=== PATIENT | male | born 1975 | race Caucasian/White ===

== ENCOUNTER 2016-06-08 12:10 | Emergency (ER) | payer SELFPAY ==
[~2016-06-08] VITALS: Ht 165.1 cm; Wt 71.3 kg
[~2016-06-08 12:10] MED LIST: CARI350T14 PO; CYCL10TA2 PO; DIAZ2TAB PO; HYDR-971 PO; NAPR500T8 PO; PARO40TA45 PO; PENI500T PO; TRAM50TA PO
[2016-06-08 12:43] VITALS: BP 125/75
--- NOTE | 2016-06-08 13:07 | PHYS DOC ---
Past Medical History Past Medical History: Anxiety, Depression, Other Additional Past Medical Histor: CHRONIC BACK PAIN Past Surgical History: No Surgical History Alcohol Use: Rarely Drug Use: None Adult General Chief Complaint Chief Complaint: Neck Pain HPI HPI Patient is a 40 year old male presents emergency department stating that he woke up and was having right neck pain. He states that he has decreased range of motion of his neck as well as some numbness and tingling into his second and third finger on his right hand. Patient states that his been taken Flexeril at night to help with the discomfort as well as tramadol without relief. He has been taken ibuprofen 800 mg twice a day without relief. Review of Systems Review of Systems Constitutional: Denies fever or chills [] Eyes: Denies change in visual acuity, redness, or eye pain [] HENT: Denies nasal congestion or sore throat [] Respiratory: Denies cough or shortness of breath [] Cardiovascular: No additional information not addressed in HPI [] GI: Denies abdominal pain, nausea, vomiting, bloody stools or diarrhea [] : Denies dysuria or hematuria [] Musculoskeletal: c/o right upper back/neck pain Integument: Denies rash or skin lesions [] Neurologic: Denies headache, focal weakness or sensory changes [] Allergies Allergies Allergies Coded Allergies Type Severity Reaction Last Updated Verified blueberry Allergy Intermediate 01/29/16 Yes Physical Exam Physical Exam Constitutional: Well developed, well nourished, no acute distress, non-toxic appearance. [] HENT: Normocephalic, atraumatic, bilateral external ears normal, oropharynx moist, no oral exudates, nose normal. [] Eyes: PERRLA, EOMI, conjunctiva normal, no discharge. [] Neck: Normal range of motion, no tenderness, supple, no stridor. [] Cardiovascular:Heart rate regular rhythm, no murmur [] Lungs & Thorax: Bilateral breath sounds clear to auscultation [] Skin: Warm, dry, no erythema, no rash. [] Back: No tenderness Extremities: right neck tenderness, no cyanosis, no clubbing, ROM intact, no edema. She with decreased range of motion with the head. Tenderness noted on the right upper back area. Peripheral pulses 2+ cap refill brisk less than 2 seconds. 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 Neurologic: Alert and oriented X 3, normal motor function, normal sensory function, no focal deficits noted. [] Psychologic: Affect normal, judgement normal, mood normal. [] Current Patient Data Vital Signs Vital Signs Date Time Temp Pulse Resp B/P Pulse Ox O2 Delivery O2 Flow Rate FiO2 06/08/16 12:43 98.2 79 16 99 Room Air 98.2 EKG EKG [] Radiology/Procedures Radiology/Procedures [] Course & Med Decision Making Course & Med Decision Making Pertinent Labs and Imaging studies reviewed. (See chart for details) Patient will be provided with a work note until Wednesday in which she can follow-up with his primary care physician. Patient has Flexeril and tramadol at home in which she can take for the pain and discomfort. Also recommended ibuprofen 800 mg every 8 hours ice packs to the area. Tendons and symptoms to return back to emergency department as been provided. Patient agrees with discharge instructions treatment regimens and follow-up recommendations. Dragon Disclaimer Dragon Disclaimer This electronic medical record was generated, in whole or in part, using a voice recognition dictation system. Departure Departure Impression: Primary Impression: Torticollis, acute Disposition: , SELF-CARE Condition: STABLE Referrals: NON,STAFF (PCP) Patient Instructions: Torticollis, Acute Additional Instructions: Activity as tolerated. Medications as prescribed. Continue the ibuprofen 800 mg every 8 hours with food. Stop taking few develop an upset stomach. Flexeril and tramadol may cause drowsiness do not take any be alert and oriented. Ice packs on 20 minutes off 20 minutes several times a day. Follow-up to primary care physician on Wednesday in which she state you have an appointment. Return back to emergency department sign symptoms of become worse. YOAV BURRELL NP Jun 08, 2016 13:07
== END 2016-06-08 13:13 | disposition home or self-care (01) ==
LOC: ER 12:10
DX: M43.6 Torticollis (principal); G89.29 Other chronic pain; F32.9 Major depressive disorder, single episode, unspecified; F41.9 Anxiety disorder, unspecified; Z91.018 Allergy to other foods
CPT/HCPCS: 99281

== ENCOUNTER 2016-07-03 13:27 | Emergency (ER) | payer SELFPAY ==
[~2016-07-03] VITALS: Ht 165.1 cm; Wt 63.5 kg
[2016-07-03 13:32] VITALS: BP 159/72
--- NOTE | 2016-07-03 14:43 | PHYS DOC ---
Past Medical History Past Medical History: Anxiety, Depression, Kidney Stone, Other Additional Past Medical Histor: CHRONIC BACK PAIN,TORTICOLLIS Past Surgical History: No Surgical History Additional Information: 1 PPD Alcohol Use: Rarely Drug Use: None Adult General Chief Complaint Chief Complaint: Neck Pain HPI HPI Patient is a 40 year old male who presents with right-sided neck pain for 1 month. He denies any injury to his neck. The pain radiates down the right arm. He also has pins and needles in the 1st, 2nd, and 3rd fingers of the right hand. He denies any weakness. He has been seen here and prescribed steroids, which helped minimally but only temporarily. He has been seen at the health department as well and prescribed Ultram and Flexeril. He states that these help minimally as well. 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 He does not have a PCP. Review of Systems Review of Systems Constitutional: Denies fever or chills. [] Respiratory: Denies cough or shortness of breath. [] Cardiovascular: Denies chest pain, palpitations or edema. [] Musculoskeletal: Denies back pain or joint pain. Reports right-sided neck pain. Integument: Denies rash or skin lesions. [] Neurologic: Denies headache, focal weakness. Report numbness and tingling in the finger of the right hand. Allergies Allergies Allergies Coded Allergies Type Severity Reaction Last Updated Verified blueberry Allergy Intermediate 01/29/16 Yes Physical Exam Physical Exam Constitutional: Well developed, well nourished, no acute distress, non-toxic appearance. [] HENT: Normocephalic, atraumatic, bilateral external ears normal, oropharynx moist, no oral exudates, nose normal. [] Eyes: PERRLA, EOMI, conjunctiva normal, no discharge. [] Neck: Normal range of motion, no midline tenderness, supple, no stridor. There is right-sided paraspinal muscle tenderness with muscle spasm. Skin: Warm, dry, no erythema, no rash. [] Back: No tenderness, no CVA tenderness. [] Extremities: No right arm tenderness, no cyanosis, no clubbing, ROM intact, no edema. 2+ radial and ulnar pulses. 2 second capillary refill in the fingers. There is mildly decreased light touch sensation in the 1st, 2nd, and 3rd fingers of the right hand. Neurologic: Alert and oriented X 3, normal motor function, normal sensory function, no focal deficits noted. [] Psychologic: Affect normal, judgement normal, mood normal. [] Current Patient Data Vital Signs Vital Signs Date Time Temp Pulse Resp B/P Pulse Ox O2 Delivery O2 Flow Rate FiO2 07/03/16 13:32 98.2 109 18 159/72 99 Room Air 98.2 EKG EKG [] Radiology/Procedures Radiology/Procedures [] Course & Med Decision Making Course & Med Decision Making Pertinent Labs and Imaging studies reviewed. (See chart for details) [] Dragon Disclaimer Dragon Disclaimer This electronic medical record was generated, in whole or in part, using a voice recognition dictation system. Departure Departure Impression: Primary Impression: Torticollis, acute Disposition: 01 HOME, SELF-CARE Condition: STABLE Referrals: NO PCP (PCP) Patient Instructions: Torticollis, Acute Additional Instructions: Please follow-up with a primary care doctor regarding your continued neck pain. Please take the prescribed pain medication as directed. Do not drive or operate heavy machinery while taking narcotic medications or muscle relaxers. Return to the emergency department if you have any new or concerning symptoms. Scripts Ibuprofen 600 Mg [id number] Mg PO PRN Q6HRS PRN INFLAMMATION #20 TAB Prov:ELIAS OLGUIN 07/03/16 Hydrocodone/Apap 5-325 ([place] 5-325 Tablet)1 Each Tablet1 Tab PO PRN Q6HRS PRN PAIN #20 TAB Prov:ELIAS OLGUIN 07/03/16 Methocarbamol (Robaxin)500 Mg [id number] Mg PO QID #20 TAB Prov:ELIAS OLGUIN 07/03/16 ELIAS OLGUIN Jul 03, 2016 14:43
[2016-07-03] MEDS ORDERED: METH-37 PO (14:54)
[2016-07-03] MEDS ORDERED: IBUP-1007 PO (14:54)
[2016-07-03] MEDS ORDERED: HYDR-971 PO (14:54)
== END 2016-07-03 14:59 | disposition home or self-care (01) ==
LOC: ER 13:27
DX: M43.6 Torticollis (principal); G89.29 Other chronic pain; Z91.018 Allergy to other foods
CPT/HCPCS: 99283

== ENCOUNTER 2016-08-01 16:23 | Emergency (ER) | payer SELFPAY ==
[~2016-08-01] VITALS: Ht 165.1 cm; Wt 63.5 kg
[~2016-08-01 16:23] MED LIST changes: +IBUP-1007 PO; +METH-37 PO
[2016-08-01 16:57] VITALS: BP 127/83
[2016-08-01] MEDS ORDERED: AMOX500T PO (17:05)
[2016-08-01] MEDS ORDERED: HYDR-971 PO (17:05)
--- NOTE | 2016-08-01 17:05 | PHYS DOC ---
Past Medical History Past Medical History: Anxiety, Depression, Kidney Stone, Other Additional Past Medical Histor: CHRONIC BACK PAIN,TORTICOLLIS Past Surgical History: No Surgical History Smoking: Less than 1pk/day Alcohol Use: Rarely Drug Use: None Adult General Chief Complaint Chief Complaint: TOOTH ACHE OR PAIN HPI HPI Patient is a 40 year old male who presents with left maxillary dental pain for 1 month. He has been seeing a dentist for the tooth and has an extraction scheduled on of next week. He is out of the pain medication that the dentist prescribed. He has completed all of the antibiotics prescribed by the dentist as well. He feels like it is starting to swell again and is worried there may be infection again that will prevent him from being able to have the tooth pulled as scheduled. He denies any fevers. His PCP is Dr. Burnett. Review of Systems Review of Systems Constitutional: Denies fever or chills. [] Eyes: Denies change in visual acuity, redness, or eye pain. [] HENT: Denies ear pain, nasal congestion or sore throat. Reports dental pain. Integument: Denies rash or skin lesions. [] Neurologic: Denies headache, focal weakness or sensory changes. [] Allergies Allergies Allergies Coded Allergies Type Severity Reaction Last Updated Verified blueberry Allergy Intermediate 01/29/16 Yes Physical Exam Physical Exam Constitutional: Well developed, well nourished, no acute distress, non-toxic appearance. [] HENT: Normocephalic, atraumatic, bilateral external ears normal, oropharynx moist, no oral exudates, nose normal. Bilateral TMs without erythema or bulging. There is no posterior pharyngeal erythema or tonsillar edema. Tooth # 14 is carious and tender without surrounding gingival edema or dental abscess. Eyes: PERRLA, EOMI, conjunctiva normal, no discharge. [] Neck: Normal range of motion, no tenderness, supple, no stridor. [] Skin: Warm, dry, no erythema, no rash. [] Neurologic: Alert and oriented X 3, normal motor function, normal sensory function, no focal deficits noted. [] Psychologic: Affect normal, judgement normal, mood normal. [] EKG EKG [] Radiology/Procedures Radiology/Procedures [] Course & Med Decision Making Course & Med Decision Making Pertinent Labs and Imaging studies reviewed. (See chart for details) [] Dragon Disclaimer Dragon Disclaimer This electronic medical record was generated, in whole or in part, using a voice recognition dictation system. Departure Departure Impression: Primary Impression: Dental caries Disposition: HOME, SELF-CARE Condition: STABLE Referrals: NO PCP (PCP) Patient Instructions: Dental Pain, [id number] Additional Instructions: Please complete all the prescribed antibiotics, even if your tooth is feeling better. Please take the prescribed pain medication as instructed. Do not drive or operate heavy machinery while taking pain medication. Please follow-up with your dentist as soon as possible. Return to emergency department if you have any new or concerning symptoms. Scripts Amoxicillin 500 Mg Tablet1 Tab PO TID #30 TAB Prov:ELIAS OLGUIN 08/01/16 Hydrocodone/Apap 5-325 ([place] 5-325 Tablet)1 Each Tablet1 Tab PO PRN Q6HRS PRN PAIN #15 TAB Prov:ELIAS OLGUIN 08/01/16 ELIAS OLGUIN Aug 01, 2016 17:05
== END 2016-08-01 17:15 | disposition home or self-care (01) ==
LOC: ER 16:23
DX: K02.9 Dental caries, unspecified (principal); F17.200 Nicotine dependence, unspecified, uncomplicated; G89.29 Other chronic pain; Z91.02 Food additives allergy status
CPT/HCPCS: 99283

== ENCOUNTER 2016-10-05 19:17 | Emergency (ER) | payer SELFPAY ==
[~2016-10-05] VITALS: Ht 165.1 cm; Wt 68.0 kg
[~2016-10-05 19:17] MED LIST changes: +AMOX500T PO
[2016-10-05 19:38] VITALS: BP 135/79
--- NOTE | 2016-10-05 20:01 | PHYS DOC ---
Past Medical History Past Medical History: Anxiety, Depression, Kidney Stone, Other Additional Past Medical Histor: CHRONIC BACK PAIN,TORTICOLLIS Past Surgical History: No Surgical History Alcohol Use: Rarely Drug Use: None Adult General Chief Complaint Chief Complaint: SHOULDER INJURY HPI HPI Patient is a 40 year old MALE who presents with NECK AND SHOULDER PAIN Pt states hx of fall/slip on ice in Jun. Hurt neck at that time and PCP Dr. Flores ordered CT and MRI. Pt states he has a ruptured disc at ?C4 or C6. No fracture of spine per pt. Pt is awaiting insurance to get further treatment such at PT. His PCP has given him prescriptions for Steroids, Flexeril, Naprosyn and [place]. Pt states this weekend was moving furniture when "pulled" neck on R side. Pt denies fall or hitting head. Since then pain in R neck worse radiating down R arm and tingling in 1-3 R digits. Pt states symptoms similar to previous pain and neurologic symptoms before MRI. Pt states ran out of [place] and naprosyn. Called his PCP tonight and told to go to ER. No weakness, no loss of bowel or bladder function. Review of Systems Review of Systems Constitutional: Denies fever or chills [] Eyes: Denies change in visual acuity, redness, or eye pain [] HENT: Denies nasal congestion or sore throat [] Respiratory: Denies cough or shortness of breath [] Cardiovascular: No additional information not addressed in HPI [] GI: Denies abdominal pain, nausea, vomiting, bloody stools or diarrhea [] : Denies dysuria or hematuria [] Musculoskeletal: Denies back pain or joint pain [] Integument: Denies rash or skin lesions [] Neurologic: Denies headache, focal weakness or sensory changes [] Allergies Allergies Allergies Coded Allergies Type Severity Reaction Last Updated Verified blueberry Allergy Intermediate 01/29/16 Yes Physical Exam Physical Exam Constitutional: Well developed, well nourished, no acute distress, non-toxic appearance. [] HENT: Normocephalic, atraumatic, bilateral external ears normal, oropharynx moist, no oral exudates, nose normal. [] Eyes: PERRLA, conjunctiva normal, no discharge. [] Neck: tender R paraspinal area with muscle spasm. No bony midline tenderness, no swelling no erythema, tender trapezius R Cardiovascular:Heart rate regular rhythm, no murmur [] Lungs & Thorax: Bilateral breath sounds clear to auscultation [] Abdomen: Bowel sounds normal, soft, no tenderness, no masses, no pulsatile masses. [] Skin: Warm, dry, no erythema, no rash. [] Back: No tenderness, no CVA tenderness. [] Extremities: No tenderness, no cyanosis, no clubbing, ROM intact, no edema. [] Neurologic: Alert and oriented X 3, normal motor function, normal sensory function, no focal deficits noted. [ Brachial Reflex 2= bilateral] Psychologic: Affect normal, judgement normal, mood normal. [] Current Patient Data Vital Signs Vital Signs Date Time Temp Pulse Resp B/P (MAP) Pulse Ox O2 Delivery O2 Flow Rate FiO2 10/05/16 19:38 98.1 79 16 135/79 (97) 97 Room Air 98.1 EKG EKG [] Radiology/Procedures Radiology/Procedures [] Impressions: 1. Cervical Radiculopathy 2. Cervical Strain Course & Med Decision Making Course & Med Decision Making Pertinent Labs and Imaging studies reviewed. (See chart for details) [] Dragon Disclaimer Dragon Disclaimer This electronic medical record was generated, in whole or in part, using a voice recognition dictation system. Departure Departure Impression: Primary Impression: Cervical radiculopathy Additional Impression: Cervical strain, acute Disposition: 01 HOME, SELF-CARE Referrals: KATHY RESENDEZ (PCP) Scripts Hydrocodone/Apap 7.5-325 ([place] 7.5-325 TABLET) 1 Each Tablet 1 TAB PO PRN Q6HRS Y for PAIN, #20 TAB 0 Refills Prov: RAOUL KO MD 10/05/16 Naproxen (NAPROSYN) 500 Mg Tablet 1 TAB PO BID, #60 TAB 2 Refills Prov: RAOUL KO MD 10/05/16 Problem Qualifiers RAOUL KO MD October 05, 2016 20:01
[2016-10-05] MEDS ORDERED: NAPR500T PO (20:06)
[2016-10-05] MEDS ORDERED: HYDR-965 PO (20:06)
== END 2016-10-05 20:11 | disposition home or self-care (01) ==
LOC: ER 19:17
DX: S16.1XXA Strain of muscle, fascia and tendon at neck level, initial encounter (principal); M54.12 Radiculopathy, cervical region; F32.9 Major depressive disorder, single episode, unspecified; F41.9 Anxiety disorder, unspecified; G89.29 Other chronic pain; M43.6 Torticollis; Z91.018 Allergy to other foods; X50.9XXA Other and unspecified overexertion or strenuous movements or postures, initial encounter; Y93.89 Activity, other specified; Y99.8 Other external cause status; Y92.89 Other specified places as the place of occurrence of the external cause
CPT/HCPCS: 99283

== ENCOUNTER 2016-10-18 10:47 | Emergency (ER) | payer SELFPAY ==
[~2016-10-18] VITALS: Ht 165.1 cm; Wt 68.0 kg
[~2016-10-18 10:47] MED LIST changes: +HYDR-965 PO; +NAPR500T PO
[2016-10-18 11:00] VITALS: BP 142/76
[2016-10-18] MEDS ORDERED: HYDR-971 PO (11:25)
--- NOTE | 2016-10-18 11:26 | PHYS DOC ---
Past Medical History Past Medical History: Anxiety, Depression, Kidney Stone, Other Additional Past Medical Histor: CHRONIC BACK PAIN,TORTICOLLIS Past Surgical History: No Surgical History Alcohol Use: Rarely Drug Use: None Adult General Chief Complaint Chief Complaint: Neck Pain HPI HPI Patient is a 40 year old male with history of kidney stone, depression, who presents today with moderate right lateral neck pain due to chronic "C6 burst" patient states he normally follows up with his own PCP Dr. Flores. Patient states his PCP has set him up for follow-up with a pain clinic in the next 1-2 weeks. He states he has an appointment with his own PCP on Wednesday this week. Patient states he is out of his pain medicine. He id specifically requesting hydrocodone. Patient states his PCP is aware he comes to the ED for hydrocodone. Patient states his PCP told in the ED will stop giving him pain medicine at some point. Patient states he hopes to get his pain medicine today and hopefully not come back to the ED for hydrocodone again. He states he will follow-up with his PCP on Wednesday then after that see the pain clinic. He states the delay in seeing the pain clinic doctor was due to insurance. He states he signed out from Dr. Zelalem Joy/[employer] insurance on 14 September. Patient denies any injury. Review of Systems Review of Systems Constitutional: Denies fever or chills [] Eyes: Denies change in visual acuity, redness, or eye pain [] HENT: Denies nasal congestion or sore throat [] Musculoskeletal: Right lateral neck pain Integument: Denies rash or skin lesions [] Neurologic: Denies headache, focal weakness or sensory changes [] Endocrine: Denies polyuria or polydipsia [] Allergies Allergies Allergies Coded Allergies Type Severity Reaction Last Updated Verified blueberry Allergy Intermediate 01/29/16 Yes Physical Exam Physical Exam Constitutional: Well developed, well nourished, no acute distress, non-toxic appearance. [] HENT: Normocephalic, atraumatic, bilateral external ears normal, oropharynx moist, no oral exudates, nose normal. [] Eyes: PERRLA, EOMI, conjunctiva normal, no discharge. [] Neck: Normal range of motion, diffuse paraspinal muscle tenderness to the right lateral cervical spine, no midline cervical spine tenderness, supple, no stridor. Skin: Warm, dry, no erythema, no rash. [] Back: No tenderness, no CVA tenderness. [] Extremities: No tenderness, no cyanosis, no clubbing, ROM intact, no edema. [] Neurologic: Alert and oriented X 3, normal motor function, normal sensory function, no focal deficits noted. [] Psychologic: Affect normal, judgement normal, mood normal. [] EKG EKG [] Radiology/Procedures Radiology/Procedures [] Course & Med Decision Making Course & Med Decision Making Pertinent Labs and Imaging studies reviewed. (See chart for details) This is a 40-year-old male patient with history of chronic "C6 burst" who presents today with his chronic neck pain. He was seen in the ED on October 05, 2016 for the same pain. Patient was given 20 tablets of hydrocodone. He states he has an appointment with his own PCP on Wednesday this week. He also states he has an appointment with the pain clinic in the next 1-2 weeks. He states there was a delay in seeing his pain clinic doctor because of insurance issues. He is requesting hydrocodone for pain. I talked to patient at length about using the ED for chronic pain management. Patient states he is aware the ED will stop giving him pain medicine because his own PCP told him if he keeps coming to the ED will stop giving him pain medicine. Informed patient I will give him a prescription for [place] today but if he comes back again he will not be given any prescription for pain medicine for the same or similar complaint. I told him clearly I will write on the prescription they cannot feel it if he has filled any narcotic prescription in the last 7 days neither can they fill the prescription after today's date just in case he tries to keep the prescription for couple more days so that he can have it filled later to go past seven days roberta. Dragon Disclaimer Dragon Disclaimer This electronic medical record was generated, in whole or in part, using a voice recognition dictation system. Departure Departure Impression: Primary Impression: Cervical radiculopathy Additional Impression: Cervical strain, acute Disposition: 01 HOME, SELF-CARE Condition: STABLE Referrals: KATHY RESENDEZ (PCP) Follow-up with your doctor as soon as you can or Wednesday as you promised Patient Instructions: Cervical Strain and Sprain with [facility] Additional Instructions: You were seen for chronic neck pain. Kindly stop using the emergency room for chronic pain. We will stop giving you anything for pain especially narcotics. Consider using your own doctor or the pain clinic. Scripts Hydrocodone/Apap 5-325 ([place] 5-325 TABLET) 1 Each Tablet 1-2 TAB PO Q4-6HRS, #12 TAB DO NOT FILL PRESCRIPTION IF PATIENT HAS FILLED ANY NARCOTICS IN THE LAST SEVEN DAYS. DO NOT FILL THIS PRISCRIPTION IF PRESENTED LATER THAN TODAY 10/18/2016 Prov: HUSAM LLOYD APRN 10/18/16 Problem Qualifiers Additional Impression: Cervical strain, acute Encounter type: initial encounter Qualified Codes: S16.1XXA - Strain of muscle, fascia and tendon at neck level, initial encounter HUSAM LLOYD APRN Oct 18, 2016 11:26
== END 2016-10-18 11:34 | disposition home or self-care (01) ==
LOC: ER 10:47
DX: S16.1XXA Strain of muscle, fascia and tendon at neck level, initial encounter (principal); M54.12 Radiculopathy, cervical region; F41.9 Anxiety disorder, unspecified; F32.9 Major depressive disorder, single episode, unspecified; G89.29 Other chronic pain; M43.6 Torticollis; Z91.018 Allergy to other foods; X58.XXXA Exposure to other specified factors, initial encounter; Y93.89 Activity, other specified; Y92.89 Other specified places as the place of occurrence of the external cause; Y99.8 Other external cause status
CPT/HCPCS: 99283